=== PATIENT | male | born 1985 | race Two or more races ===

== ENCOUNTER 2018-12-02 15:33 | Inpatient (IN) | payer OTHER ==
[~2018-12-02] VITALS: Ht 160 cm; Wt 86.2 kg
== END 2018-12-08 14:26 | disposition home or self-care (01) | DRG 482 ==
LOC: SURG → O/R 12-05 12:56 → SURG 12-05 13:26 → SURH 12-06 14:57
PROVIDERS: ADMIT Orthopaedic Surgery
PROC: 0QH906Z Insertion of Intramedullary Internal Fixation Device into Left Femoral Shaft, Open Approach (ICD-10-PCS; principal; 2018-12-06 05:00)
DX: S42.322A Displaced transverse fracture of shaft of humerus, left arm, initial encounter for closed fracture (principal)

== ENCOUNTER 2018-12-02 18:09 | Emergency (ER) | payer OTHER ==
[~2018-12-02] VITALS: Ht 167.6 cm; Wt 90.7 kg
== END 2018-12-02 20:41 | disposition home or self-care (01) ==
LOC: ER 18:09
DX: S42.392A Other fracture of shaft of left humerus, initial encounter for closed fracture (principal); Z47.89 Encounter for other orthopedic aftercare; X58.XXXA Exposure to other specified factors, initial encounter; Y93.89 Activity, other specified; Y92.89 Other specified places as the place of occurrence of the external cause; Y99.8 Other external cause status